=== PATIENT | male | born 1970 | race Caucasian/White ===

== ENCOUNTER 2020-06-01 06:59 | Inpatient (IN) | payer OTHER ==
[~2020-06-01] VITALS: Ht 180.3 cm; Wt 80.7 kg
--- NOTE | ~2020-06-01 | EMS ---
[place] [address] EMS Patient Care Report Name: CUAUHTEMOC CAZARES Room: [facility]#: [id number] Admission: 06/01/20 Attend Phys: Discharge: Date of : 66 Report #: [id number] THIS REPORT FOR: //name// Report Transmitted: 06/01/2020 07:15 EMS Care Summary [facility] Incident [id number] @ 06/01/2020 06:07 Incident Location [address] [place] [address] Patient CUAUHTEMOC CAZARES Male, 49 Years 1970 Patient Address [address] [place] [address] Patient History None Reported, Patient Allergies Morphine, Patient Medications None Reported, Chief Complaint CP Disposition Transported No Lights/[place] Dispatch Reason Chest Pain (Non-Traumatic) Transported To [facility] Narrative Dispatch: Med 1 responded to the above residence for pt with CP. C/C: CP; pt alert/oriented. Pt was able to ambulate without assistance against medical advice. Pt was in apparent distress. No life threats. [place] [address] EMS Patient Care Report Name: CUAUHTEMOC CAZARES [id number] Admission: 06/01/20 Attend Phys: Discharge: Date of : 66 Report #: [id number] status at this time. HPI/RACHEL/JINA: Upon EMS arrival pt was standing outside on sidewalk; pt walked to ambulance without assistance. Pt stated onset CP 0555. Pt described pain as constant, pressure, radiating down both arms. Pt denies cardiac hx. Pt states it was sudden onset while sleeping. Nothing relieves/worsens pain. Pt denies any other symptoms. cafeteria monitor applied further assessment performed. Assessment: Primary Airway- Open, Patent Breathing- Non Labored, Regular, RA Circulation- Strong, Radial, Regular LOC: GCS 15; A/O x4, PPTE see detailed assessment for further information pt Pt PCR. Reason for Transport: CP. Medical attending required. Treatment: surgical mask application, Assessment, Vitals including BG, cafeteria monitor applied, 12 Lead Left side, right side, 15 Lead performed, IV access established, Medication administration, Transport. Summary of Call: Pt transported to closest cardiac facility. Pt condition remained stable during transport with no ECG changes. Radio report given 20 mins prior to ED arrival. Verbal report given bedside upon transfer of care; ED Bed 4 to receiving RN. MARIANOR Conrado Corey [id number] Initial Vitals @06:30P: 82,BP: 122/87,SpO2: 99, @06:24P: 88,SpO2: 99, @06:40P: 82,BP: 133/89,SpO2: 99, @06:19P: 93,SpO2: 99, @06:22 @06:55Pain: 08/24,GCS: 15,LA Suspected: false @06:50P: 87,R: 18,BP: 106/77,Pain: 4/10,GCS: 15,SpO2: 99,Revised Trauma: 12, @06:15R: 20,BP: 146/86,Pain: 10/10,GCS: 15,Glucose: 116,SpO2: 99,Revised Trauma: 12, @06:45P: 88,R: 18,BP: 103/78,Pain: 4/10,GCS: 15,SpO2: 97,Revised Trauma: 12,LA Suspected: false Assessments @06:14MENTAL:Person Oriented,Time Oriented,Event Oriented,Place Oriented,SKIN:HEENT:LUNG SOUNDS:ABDOMEN:PELVIS//GI:EXTREMITIES:Capillary Refill: Right Upper: < 2 Sec,PULSE:Radial: 2+ Normal,NEURO:@06:52MENTAL:[place] [address] EMS Patient Care Report Name: CUAUHTEMOC CAZARES [facility] [id number] Admission: 06/01/20 Attend Phys: Discharge: Date of : 66 Report #: [id number] Oriented,Place Oriented,Time Oriented,Event Oriented,SKIN:HEENT:Head/Face: No Abnormalities,Neck/Airway: No Abnormalities,LUNG SOUNDS:General: No Abnormalities,ABDOMEN:General: No Abnormalities,PELVIS//GI:EXTREMITIES:PULSE:Radial: 2+ Normal,NEURO:No Abnormalities, Impression Chest Pain / Discomfort Procedures @06:14ALS AssessmentResponse: UnchangedSucceeded@06:20Normal Saline (.9% NaCl) 10cc (20 ga) Site: Forearm-RightResponse: UnchangedSucceeded@06:15Aspirin - 324 Milligrams (mg) - OralResponse: Unchanged@06:25Nitro [place] - 0.4 Milligrams (mg) - SublingualResponse: Improved@06:13Surgical Mask on PatientResponse: Unchanged@06:2415-Lead ECGResponse: UnchangedSucceeded@06:1912-Lead ECGResponse: UnchangedSucceeded@06:2212-Lead ECGResponse: UnchangedSucceeded Timeline 06:05,Call Received 06:07,Dispatched 06:08,En Route 06:13,On Scene 06:13,At Patient 06:13,Surgical Mask on Patient,Response: Unchanged 06:14,ALS Assessment,Response: UnchangedSucceeded, 06:15,Aspirin - 324 Milligrams (mg) - Oral,Response: Unchanged 06:15,BP: 146/86 M,PULSE: ,RR: 20 R,SPO2: 99 Ox,ETCO2: ,B,PAIN: 10,GCS: 15, 06:19,12-Lead ECG,Response: UnchangedSucceeded, 06:19,BP: / M,PULSE: 93,RR: R,SPO2: 99 Ox,ETCO2: ,BG: ,PAIN: ,GCS: , 06:20,Normal Saline (.9% NaCl) 10cc 20 ga Site: Forearm-Right,Response: UnchangedSucceeded, 06:22,12-Lead ECG,Response: UnchangedSucceeded, 06:22,BP: / M,PULSE: ,RR: R,SPO2: Ox,ETCO2: ,BG: ,PAIN: ,GCS: , 06:24,Depart Scene 06:24,BP: / M,PULSE: 88,RR: R,SPO2: 99 Ox,ETCO2: ,BG: ,PAIN: ,GCS: , 06:24,15-Lead ECG,Response: UnchangedSucceeded, 06:25,Nitro [place] - 0.4 Milligrams (mg) - Sublingual,Response: Improved 06:30,BP: 122/87 M,PULSE: 82,RR: R,SPO2: 99 Ox,ETCO2: ,BG: ,PAIN: ,GCS: , 06:40,BP: 133/89 M,PULSE: 82,RR: R,SPO2: 99 Ox,ETCO2: ,BG: ,PAIN: ,GCS: , 06:45,BP: 103/78 M,PULSE: 88,RR: 18 R,SPO2: 97 Ox,ETCO2: ,BG: ,PAIN: 4,GCS: 15, 06:50,BP: 106/77 M,PULSE: 87,RR: 18 R,SPO2: 99 Ox,ETCO2: ,BG: ,PAIN: 4,GCS: 15, 06:55,BP: / M,PULSE: ,RR: R,SPO2: Ox,ETCO2: ,BG: ,PAIN: 4,GCS: 15, 06:57,At Destination 07:07,[place] [address] EMS Patient Care Report Name: CUAUHTEMOC CAZARES Room: [facility]#: [id number] Admission: 06/01/20 Attend Phys: Discharge: Date of : 66 Report #: [id number] Disclaimer v1.1 Copyright 2020 [employer] This EMS Care Summary contains data elements from the applicable legal record (which may be displayed differently). It is designed to provide pertinent information for the following purposes: continuity of care, clinical quality, and state data reporting. The complete legal record is available to ED staff and administrators of the receiving hospital in [employer]'s Patient Tracker. All data is provided "as is."
[2020-06-01 07:03] VITALS: BP 126/83
[2020-06-01 07:33] LABS: ABSOLUTE EOSINOPHILS 0.1 thou/uL (0.0-0.7); ABSOLUTE LYMPHOCYTES 1.7 thou/uL (0.8-5.3); ABSOLUTE MONOCYTES 0.3 thou/uL (0.0-1.2); ABSOLUTE NEUTROPHILS 3.4 thou/uL (1.6-8.1); BASOPHILS 0.7 %; EOSINOPHILS 2.2 %; HEMATOCRIT 44.7 % (42.0-52.0); HEMOGLOBIN 15.7 gm/dL (14.0-18.0); LYMPHOCYTES 30.7 %; MCH 31.8 pg (26.0-34.0); MCHC 35.1 g/dL (28.0-37.0); MCV 90.6 fL (80.0-100.0); MONOCYTES 4.8 %; MPV 7.2 fl. (7.2-11.1); NUCLEATED RBCS 0 /100WBC; PLATELET COUNT* 250 thou/uL (150-400); POLYS 61.6 %; RBC 4.93 mil/uL (4.50-6.00); RDW-CV 14.8 % (10.5-14.5); WBC 5.6 thou/uL (4.0-11.0)
[2020-06-01 07:37] LABS: CALCIUM 8.5 mg/dL (8.5-10.1); CREATININE 0.9 mg/dL (0.6-1.3); POTASSIUM 3.4 mmol/L (3.5-5.1)
[2020-06-01 07:49] LABS: ALBUMIN 3.6 g/dL (3.4-5.0); CK-MB MASS 0.6 ng/mL (<0.5-3.6); TOTAL BILIRUBIN 0.6 mg/dL (<0.1-1.0); TOTAL PROTEIN 6.9 g/dL (6.4-8.2)
[2020-06-01 07:53] LABS: APTT 20.9 Seconds (25.0-31.3); PROTIME 10.8 Seconds (9.20-11.50)
[2020-06-01 13:00] VITALS: BP 136/88
[2020-06-01 13:20] VITALS: BP 154/94
[2020-06-01 15:57] VITALS: BP 156/89
[2020-06-01 17:00] LABS: CALCIUM 8.9 mg/dL (8.5-10.1); POTASSIUM 3.6 mmol/L (3.5-5.1)
[2020-06-01 17:03] LABS: PHOSPHORUS* 3.9 mg/dL (2.5-4.9)
[2020-06-01 20:00] VITALS: BP 153/90
[2020-06-02] VITALS (19 sets, daily range): BP systolic 115–144; BP diastolic 64–86
[2020-06-02 06:19] LABS: CHOLESTEROL 135 mg/dL (<200); HDL CHOLESTEROL 35 mg/dL (>40); LDL CHOLESTEROL 77 mg/dL (<100); TC:HDL 3.9 Ratio (Not establshd); TRIGLYCERIDE 118 mg/dL (<150); VLDL 24 mg/dL (<40)
[2020-06-02 06:22] LABS: SERUM ASSESSMENT Clear
--- NOTE | 2020-06-02 09:17 | EKG ---
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1970 Requested By: Alli Hartmann Order Number: [id number] MD: Yves Gerardo Measurements Intervals [place] Rate: 76 P: 70 SD: 126 QRS: 23 QRSD: 92 T: 74 QT: 403 QTc: 454 Interpretive Statements Sinus rhythm Minimal ST depression, lateral leads ST elevation, consider inferior injury No previous ECG available for comparison Electronically Signed On 06-02-2020 9:17:42 SNAKER by Yves Gerardo [email or web address] <ELECTRONICALLY SIGNED> By: Yves Gerardo MD, [facility] 06/02/20916 1 1 Yves Gerardo MD, [facility] /EPI
--- NOTE | 2020-06-02 09:18 | EKG ---
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 : 1970 Requested By: Alli Hartmann Order Number: [id number] MD: Yves Gerardo Measurements Intervals [place] Rate: 57 P: 55 [place]: 120 QRS: 10 QRSD: 101 T: 65 QT: 436 QTc: 425 Interpretive Statements Sinus rhythm ST elevation, consider inferior injury Baseline wander in lead(s) II Compared to ECG 06/01/2020 07:02:56 No significant changes Electronically Signed On 06-02-2020 9:18:10 WEB METHODS DEVELOPER by Yves Gerardo [email or web address] <ELECTRONICALLY SIGNED> By: Yves Gerardo MD, FACC 06/02/20 0918 0853 0853 Yves Gerardo MD, [facility] /EPI
--- NOTE | 2020-06-02 10:09 | CON ---
[facility] [address] [place] [address] CONSULTATION Name: CUAUHTEMOC CAZARES Room: [address] IN ..#: [id number] Admission: 06/01/20 Attend Phys: Tatyana Haywood Discharge: Date of : 66 Report #: [id number] THIS REPORT FOR: cc: Zack Burns Bradley L. DO ~ Yves Gerardo MD [facility] DATE OF SERVICE: 06/01/2020 CARDIOLOGY CONSULTATION INDICATION: Myocardial infarction. HISTORY OF PRESENT ILLNESS: The patient is a 49-year-old gentleman with no prior cardiac history. Cardiac risk factors include family history of coronary artery disease and tobacco use. Lipid status is unknown. The patient awoke at 5:00 this morning with right of sternum chest discomfort that then radiated to the left side of the chest and into the upper part of both arms. The patient describes a squeezing around his chest. Pain was rated 8/10. The patient presented to the Emergency Room after EMS had brought him. He received 1 sublingual nitroglycerin in the ambulance on the way to the hospital and a second one in the Emergency Room. After his second nitro, the pain was relieved. The patient was placed on nitro paste and heparin drip. At the time of interview, the patient is pain free. Thus far peak troponin is 0.22. EKG shows perhaps some very subtle ST elevation in the inferior leads. No acute changes otherwise noted. ALLERGIES: MORPHINE. MEDICATIONS: None. SOCIAL HISTORY: The patient drinks a moderate amount of alcohol. He smokes a pack of cigarettes daily. FAMILY HISTORY: The patient's mother had heart disease in her 60s. PAST MEDICAL HISTORY: 1. Pleurisy 20 years ago. 2. History of hypertension, remotely. 3. Lipid status unknown. REVIEW OF SYSTEMS: A 14-point review of systems otherwise unremarkable. PHYSICAL EXAMINATION: [place] [address] CONSULTATION Name: CUAUHTEMOC CAZARES Room: [address]#: [id number] Admission: 06/01/20 Attend Phys: Tatyana Haywood Discharge: Date of : 66 Report #: [id number] VITAL SIGNS: Blood pressure 140/76, pulse 61 and regular. GENERAL: This is a pleasant gentleman in no distress. Mood and affect appropriate. HEENT: Extraocular muscles intact. Mucous membranes are moist. NECK: Shows no jugular venous distention. There are no carotid bruits. CHEST: Reveals clear lung zhang without wheezes, rales or rhonchi. CARDIOVASCULAR: Reveals a regular rhythm with normal S1 and S2. I do not appreciate gallop or murmur. ABDOMEN: Reveals normal bowel sounds. The abdomen is soft and nontender. EXTREMITIES: Shows no edema. Peripheral pulses are 2+ and easily palpable. SKIN: Warm and dry. LABORATORY DATA: A 12-lead EKG shows sinus rhythm with perhaps 0.[address] elevation isolated mostly to lead III. No other acute changes noted. Labs are reviewed. Sodium 142, potassium 3.4, chloride 107, bicarbonate 27, BUN 9, creatinine 0.9, serum glucose 139. LFTs within normal limits. Troponin on arrival 0.06 and subsequently 0.22. NT-proBNP 80. Coags within normal limits. White blood cell count 5.6, hemoglobin 15.7, platelet count 250,000. COVID negative. Chest x-ray shows no acute cardiopulmonary abnormality. IMPRESSION AND RECOMMENDATIONS: 1. Myocardial infarction. Subtle changes on EKG that do not quite meet criteria for ST elevation myocardial infarction. Overall, findings consistent with non-ST elevation myocardial infarction. I suspect he had acute coronary occlusion with an autolysis. He is not having symptoms to suggest ongoing ischemia at this point in time. Would continue nitro paste and heparin drip as started in the Emergency Room. We will start low dose beta daysi at this point in time. We will follow with coronary angiography and probable intervention. Echocardiogram will be ordered. 2. Borderline hypertension. Start low dose beta daysi at this time. 3. Tobacco use. Smoking cessation discussed and advised. 4. Possible hyperlipidemia. Fasting lipid profile ordered and pending. <ELECTRONICALLY SIGNED> By: Yves Gerardo MD, FACC 06/02/20 1009 1304 1321Yves Gerardo MD, FACC /nt
[2020-06-03] VITALS (7 sets, daily range): BP systolic 82–121; BP diastolic 47–75
[2020-06-03 04:44] LABS: CALCIUM 8.3 mg/dL (8.5-10.1); CREATININE 0.9 mg/dL (0.6-1.3); POTASSIUM 3.5 mmol/L (3.5-5.1)
[2020-06-03 05:13] LABS: TROPONIN-I LEVEL 7.59 ng/mL (<0.06)
[2020-06-03] MEDS ORDERED: CLOPIDOGREL75 MG PO (08:44)
[2020-06-03] MEDS ORDERED: METOPROLOL TART25 MG PO (08:44)
[2020-06-03] MEDS ORDERED: NITROGLYCERIN0.4 MG SUBLING (08:44)
[2020-06-03] MEDS ORDERED: ASA81BEC PO (08:44)
[2020-06-03] MEDS ORDERED: ATORVASTATIN CA20 MG PO (08:44)
--- NOTE | 2020-06-03 09:02 | CARD ---
[address] [address] CARDIAC CATH REPORT Name: CUAUHTEMOC CAZARES Room: [address] IN [facility].#: [id number] Admission: 06/01/20 Attend Phys: Tatyana Haywood Discharge: Date of : 66 Report #: [id number] THIS REPORT FOR: cc: Zack Burns Bradley L. DO ~ Baudilio Mendoza MD APPROVED REPORT Study performed: 06/02/2020 09:40:42 Patient Details Patient Status: In-Patient Room #: 204 The patient is a 49 year-old male Event Personnel , Baudilio Mendoza Cafe Lead Saadia Davis RN Monitor, Kaylee Wellington RN RN, Jasbir Heart RTR Scrub Procedures Performed Art Access - R radial artery Left Heart Cath w/or w/o Coronaries PTCA Single Vessel PDA , Right transradial approach Indication Non-STEMI , Dyspnea, Chest pain Risk Factors Dysplipidemia , Family History, Hypertension, Tobacco History () Procedure Narrative The patient was brought urgently to the Cardiac Catheterization Laboratory and was prepped and draped in a sterile manner. The right wrist was infiltrated with 2% Lidocaine subcutaneous anesthesia. A Slender Glidesheath sheath was inserted into the right radial artery. Coronary angiography was performed using coronary diagnostic catheters. The right coronary system was accessed and visualized with a 6F JR 4.0Diagnostic catheter. The left coronary system was accessed and visualized with a JL 3.5 6frDiagnostic catheter. The left ventricle was accessed and visualized with a PC: Straight Pig Diagnostic catheter. Left ventricular/Aortic Valve gradient assessed via catheter pullback with no gradient. The patient tolerated the procedure well and there were no complications associated with the procedure. There was no hematoma. Right [place] [address] CARDIAC CATH REPORT Name: CUAUHTEMOC CAZARES Room: [address] IN [facility]#: [id number] Admission: 06/01/20 Attend Phys: Tatyana Haywood Discharge: Date of : 66 Report #: [id number] arterial access site with 13ml air to maintain pressure. Intraoperative Conscious Sedation Sedation start time: 10:30 Case end Time: 10:49 Fentanyl 50 mcg Versed 1 mg Fluoro Time: 11.0 minutes Dose: 1900 mGy Contrast Type and Amount: Visipaque 170 ml Coronary Angiography The patient's coronary anatomy is co- dominant. Diagnostic Cath Left Main The left main artery is a large-caliber vessel, patent with no flow-limiting lesions. LAD The LAD is a moderate to large caliber vessel, traverses the anterior wall and wraps around the apex. There is mild diffuse disease in the proximal segment, less than 20%. Diagonal 1 This is a moderate-sized caliber vessel, patent with no flow-limiting lesions. Circumflex The left circumflex artery is a codominant vessel, with mild disease in the midsegment, less than 20%. OM1 This is a moderate-sized caliber vessel, travels the lateral wall and wraps around the inferior wall. This vessel is patent with no flow-limiting lesions. OM2 This is a small to moderate-sized caliber vessel, patent with no flow-limiting lesions. OM3 This is a small to moderate-sized caliber vessel, patent with no flow-limiting lesions. Right Coronary The RCA is a moderate-sized caliber vessel with mild disease proximally, 20%. Supplies a PDA vessel. R PDA There is a total occlusion in the proximal/mid segment. Left Ventriculography The left ventricle is normal in size with mildly diminished contractility. The left ventricular ejection fraction is estimated to be 45-50%. Left ventricular wall motion abnormalities are present. There is hypokinesis of the mid inferior segment. Hemodynamics The aortic pressure is 118/68 mmHg with a mean of 76 mmHg. The left ventricular pressure is 124/2 mmHg with a [place] [address] CARDIAC CATH REPORT Name: CUAUHTEMOC CAZARES Room: [address] IN ..#: [id number] Admission: 06/01/20 Attend Phys: Tatyana Haywood Discharge: Date of : 66 Report #: [id number] ventricular end diastolic pressure is 20 mmHg. PCI Technique Lesion Percutaneous coronary intervention was performed on the right posterior descending artery. The lesion stenosis prior to intervention was 100% with BRIGIDO 0 flow. A 6F JR 4.0 Guide Catheter was used to engage the ostium. A IG: BMW 190cm Interventional Guidewire was used to cross the lesion. BALLOON DILATION A Balloon catheter Euphora SC 2.0x12mm was inserted and inflated up to 8.00atm for 11seconds. COMMENTS A BMW wire was passed through the obstruction and placed in the distal PDA. The occluded area was ballooned with a 2.0 mm compliant balloon. Injections revealed no change in the obstructed site. The patient presented more than 24 hours after the onset of symptoms, pain-free upon presentation to the Entry Level Automotive Technician. Injection of the left system did not reveal any collateral filling of the distal PDA. The PDA after the obstruction appears to be completely occluded. Recommend medical therapy. Conclusion 1. There is mild disease in the LAD, LCx and RCA. 2. The left circumflex artery is a codominant system. 3. The culprit vessel was a total occlusion of the proximal/mid portion of the PDA. 4. Failed PCI, probably due to complete occlusion of the PDA after the initial obstruction. 5. There is mild LV dysfunction with hypokinesis of the mid inferior segment. 6. Recommend guideline directed medical therapy and aggressive risk factor management. <ELECTRONICALLY SIGNED> By: Baudilio Mendoza MD 06/03/20901 1 1Baudilio Mendoza MD /INF
--- NOTE | 2020-06-03 12:05 | 2DMMODE ---
[place] [address] 2 D/M-MODE ECHOCARDIOGRAM Name: CUAUHTEMOC CAZARES Room: [address] IN [facility]#: [id number] Admission: 06/01/20 Attend Phys: Kd Garces Discharge: Date of : 66 Date of Service: 06/03/20 1205 Report #: [id number] THIS REPORT FOR: cc: Zack Burns Bradley L. DO Blick, David R. MD [facility] ~ APPROVED REPORT Study performed: 06/03/2020 10:50:42 EXAM: Comprehensive 2D, Doppler, and color-flow Echocardiogram Patient Location: In-Patient Room #: [facility] Status: routine BSA: 1.97 HR: 59 bpm BP: 95/48 mmHg Rhythm: NSR Other Information Study Quality: Good Indications Acute IL 2D Dimensions IVSd: 11.53 (7-11mm) LVOT Diam: 20.38 (18-24mm) LVDd: 44.27 mm PWd: 10.14 (7-11mm) Ascending Ao: 32.97 (22-36mm) LVDs: 29.68 (25-40mm) Aortic Root: 37.25 mm Volumes Left Atrial Volume (Systole) LA ESV Index: 22.50 mL/m2 Aortic Valve AoV Peak Ej.: 1.25 m/s AO Peak Gr.: 6.22 mmHg LVOT Max P.29 mmHg AO Mean Gr.: 3.16 mmHg LVOT Mean P.89 mmHg LVOT Max V: 1.04 m/s AO V2 VTI: 20.69 cm LVOT Mean V: 0.62 m/s RAY (VTI): 3.50 cm2 LVOT V1 VTI: 22.19 [place] [address] 2 D/M-MODE ECHOCARDIOGRAM Name: CUAUHTEMOC CAZARES Room: [address] IN [facility]#: [id number] Admission: 06/01/20 Attend Phys: Kd Garces Discharge: Date of : 66 Date of Service: 06/03/20 1205 Report #: [id number] Mitral Valve E/A Ratio: 1.15 MV Decel. Time: 190.62 ms MV E Max Ej.: 0.75 m/s MV PHT: 55.28 ms MVA (PHT): 3.98 cm2 TDI E/Lateral E': 6.25 E/Medial E': 6.82 Medial E' Ej.: 0.11 m/s Lateral E' Ej.: 0.12 m/s Pulmonary Valve PV Peak Ej.: 0.89 m/s PV Peak Gr.: 3.18 mmHg Tricuspid Valve RAP Estimate: 15.00 mmHg TR Peak Gr.: 22.49 mmHg RVSP: 37.00 mmHg PA Pressure: 37.00 mmHg Left Ventricle The left ventricle is normal size. There is normal LV segmental wall motion. There is normal left ventricular wall thickness. Left ventricular systolic function is normal. The left ventricular ejection fraction is within the normal range. LVEF is 55-60%. The left ventricular diastolic function is normal. Right Ventricle The right ventricle is normal size. The right ventricular systolic function is normal. Atria The left atrium size is normal. The right atrium size is normal. Aortic Valve The aortic valve is normal in structure. No aortic regurgitation is present. There is no aortic valvular stenosis. Mitral Valve The mitral valve is normal in structure. There is no mitral valve regurgitation noted. No evidence of mitral valve stenosis. Tricuspid Valve The tricuspid valve is normal in structure. Trace [place] [address] 2 D/M-MODE ECHOCARDIOGRAM Name: SAGECUAUHTEMOC Tafoya Room: [address]#: [id number] Admission: 06/01/20 Attend Phys: Kd Garces Discharge: Date of : 66 Date of Service: 06/03/20 1205 Report #: [id number] Pulmonic Valve The pulmonary valve is normal in structure. There is no pulmonic valvular regurgitation. Great Vessels The aortic root is normal in size. IVC is dilated and collapses <50% with inspiration. Pericardium There is no pericardial effusion. <Conclusion> Left ventricular systolic function is normal. The left ventricular ejection fraction is within the normal range. <ELECTRONICALLY SIGNED> By: Jhonathan Hebert MD, FACC 06/03/20 1205 1205 1205 Jhonathan Hebert MD, FACC /INF
--- NOTE | 2020-06-03 12:55 | EKG ---
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1970 Requested By: Yves Gerardo Order Number: [id number] Reading MD: Jhonathan Hebert Measurements Intervals [place] Rate: 59 P: 64 PA: 126 QRS: -17 QRSD: 104 T: -11 QT: 407 QTc: 404 Interpretive Statements Sinus rhythm Inferior infarct, age indeterminate Compared to ECG 06/01/2020 08:53:06 ST (T wave) deviation no longer present Myocardial infarct finding still present Electronically Signed On 06-03-2020 12:55:38 LEAD PROCESS ENGINEER by Jhonathan Hebert [email or web address] <ELECTRONICALLY SIGNED> By: Jhonathan Hebert MD, FACC 06/03/20 1255 1111 1111 Jhonathan Hebert MD, [facility] /EPI
== END 2020-06-03 12:00 | disposition home or self-care (01) | DRG 251 ==
LOC: M.ERS 06:59 → M.2W 10:37 → M.TBA-ER 10:37 → M.2W 13:16
PROVIDERS: Family Medicine; Internal Medicine Cardiovascular Disease; ADMIT Internal Medicine; ATTEND Internal Medicine
DX: I21.4 Non-ST elevation (NSTEMI) myocardial infarction (principal); I25.10 Atherosclerotic heart disease of native coronary artery without angina pectoris; F17.210 Nicotine dependence, cigarettes, uncomplicated; E78.5 Hyperlipidemia, unspecified; I10 Essential (primary) hypertension; Z20.822 Contact with and (suspected) exposure to COVID-19; Z88.5 Allergy status to narcotic agent

== ENCOUNTER → 2020-06-08 | Emergency (ER) | payer OTHER ==
[~2020-06-08] VITALS: Ht 172.7 cm; Wt 83.6 kg
[~2020-06-08] MED LIST: ASA81BEC PO; ATORVASTATIN CA20 MG PO; CLOPIDOGREL75 MG PO; METOPROLOL TART25 MG PO; NITROGLYCERIN0.4 MG SUBLING
[2020-06-08 12:10] VITALS: BP 141/95
== END ==
LOC: M.ERS 11:58
DX: F41.0 Panic disorder [episodic paroxysmal anxiety] (principal); Z79.01 Long term (current) use of anticoagulants; Z79.82 Long term (current) use of aspirin; Z79.899 Other long term (current) drug therapy; Z88.5 Allergy status to narcotic agent